=== PATIENT | female | born 1950 | race Caucasian/White ===

== ENCOUNTER 2016-09-24 07:00 | Inpatient (IN) | payer MEDICARE, OTHER ==
[~2016-09-24] VITALS: Ht 154.9 cm; Wt 106.8 kg
--- NOTE | ~2016-09-24 | DS ---
PATIENT'S NAME: RAYMOND WELSH [facility] AGE: 65 Y [address] ROOM: [place] [address] LOCATION: N ADMIT DATE: 09/30/2016 Discharge Summary DISCHARGE DATE: 10/02/2016 FAMILY PHYSICIAN: Paloma Chavez MD ATTENDING PHYSICIAN: Jet Sheppard PRIMARY DIAGNOSIS: Failed left total knee arthroplasty. SECONDARY DIAGNOSES: 1. Depression. 2. Obstructive sleep apnea with CPAP. 3. History of pneumonia. 4. Morbid obesity. PROCEDURE PERFORMED: Left total knee arthroplasty revision. HISTORY: The patient is a 65-year-old female, who presents with failed left total knee arthroplasty and associated severely compromised activities of daily living. The patient has decided to proceed with total knee arthroplasty after having been thoroughly counseled regarding the risks, benefits, limitations, and alternatives. Please refer to the outpatient clinic notes and admission history and physical for this patient. HOSPITAL COURSE: The patient underwent a left total knee arthroplasty revision on 09/30/2016 without complications. Spinal anesthesia plus periarticular local anesthesia was utilized. The patient received 24 hours of perioperative prophylactic antibiotics and remained hemodynamically stable, neurovascularly intact throughout the entire hospital course. The postoperative prophylactic deep venous thrombosis prophylaxis consisted of Xarelto, early mobilization, and pneumatic compression devices. Daily physical therapy for gait training, transfer training range of motion, and quadriceps isometric exercises were received. The patient progressed well in physical therapy. On the date of discharge, 10/02/2016, the incision at the knee was healing well and showed no signs of infection. DISPOSITION: Home. DISCHARGE ACTIVITY: The patient is to bear weight as tolerated with range of motion and quadriceps isometric exercises as instructed. The operative extremity is to be elevated at least 90% of the day. There is to be sterile 4x4 gauze dressings to the incision daily. Dr. Sheppard is to be notified immediately if there is any increased pain, fevers, chills, erythema, or drainage. DISCHARGE MEDICATIONS: PATIENT'S NAME: RAYMOND WELSH [facility] AGE: 65 Y [address] ROOM: [place] [address] LOCATION: G3N ADMIT DATE: 09/30/2016 Discharge Summary DISCHARGE DATE: 10/02/2016 FAMILY PHYSICIAN: Paloma Chavez MD ATTENDING PHYSICIAN: Jet Sheppard 1. Xarelto 10 mg 1 tablet p.o. daily for 12 days for postoperative DVT prophylaxis. 2. Hydromorphone 2 mg 1 to 2 tablets p.o. every 4 hours p.r.n. for pain. The patient was instructed to continue all her other pre-admission medications as instructed by her internal medicine doctor. FOLLOWUP: Followup appointment is to be with Dr. Sheppard's office on 10/07/2016 for her initial postop evaluation with suture removal and x-rays at that time. ANTOINE MAGANA PA-C FOR MD BHAVNA FAROOQW/tiol /[id number] d: 10/08/16 0129 t: 11/04/16 1310, DISCHARGE SUMMARY
--- NOTE | ~2016-09-24 | OR ---
PATIENT'S NAME: RAYMOND WELSH [facility] AGE: 65 Y [address] ROOM: [address] [address] LOCATION: [facility] ADMIT DATE: 09/30/2016 OR/Procedure Report DISCHARGE DATE: 10/02/2016 FAMILY PHYSICIAN: Paloma Chavez MD ATTENDING PHYSICIAN: Jet Sheppard SURGEON: Jet Sheppard MD HOSPITALITY AIDE: DATE OF PROCEDURE: 09/30/2016 ADDENDUM: It should be noted that the physician's tax accounting assistant played an active, integral role throughout this entire operation. By providing expert retraction, they greatly facilitated and expedited safe and effective exposure of the distal femur, proximal tibia and patella for preparation and implantation of the components. They were also actively involved in the patient's positioning, prepping and draping, as well as wound closure. MD GEENA FAROOQ/jaylon /[id number] d: 10/21/162141 t: 10/22/16 1210, OPERATIVE SUMMARY
--- NOTE | ~2016-09-24 | OR ---
PATIENT'S NAME: RAYMOND WELSH [facility] AGE: 65 Y [address] ROOM: [place] [address] LOCATION: [facility] ADMIT DATE: 09/30/2016 OR/Procedure Report DISCHARGE DATE: FAMILY PHYSICIAN: Paloma Chavez MD ATTENDING PHYSICIAN: LUKE PLEITEZ SURGEON: Luke Pleitez MD AGED OR DISABLED CARER: FIDE Casiano and Thien Jacobo CST/STEAM HAND. DATE OF PROCEDURE: 09/30/2016 PREOPERATIVE DIAGNOSES: 1. Left knee degenerative joint disease (severe, primary patella degenerative joint disease). 2. Non resurfaced patella status post left total knee arthroplasty (performed elsewhere). 3. Left knee patellofemoral malalignment. 4. Ligamentous laxity (medial collateral ligament, lateral collateral ligament, and posterior cruciate ligament). 5. Status post left knee arthroplasty (performed elsewhere). PROCEDURE PERFORMED: 1. Revision left total knee arthroplasty (tibial polyethylene exchange) and placement of patella component. 2. Lateral retinacular release. ANESTHESIA: Spinal anesthesia plus periarticular local anesthesia (ropivacaine with epinephrine and Toradol). DRAINS: None. SPECIMEN: Synovial fluid for cell count and culture. COMPLICATIONS: None. EXPLANTS: Kapadia and Nephew 15 mm deep dished tibial polyethylene insert. IMPLANTS: 1. Kapadia Nephew Journey II 18 mm deep-dished tibial polyethylene insert. 2. Size 29 mm round, Zamzam patella component. INDICATION FOR PROCEDURE: Ms. Welsh is a 65-year-old female who underwent a primary left knee arthroplasty with Dr. Darius Chisholm in July of 2015. She has experienced significant persistent and progressive discomforts since then. Her patella was not resurfaced at that time. She has full thickness erosion of the articular cartilage at her [place] patella. She also PATIENT'S NAME: RAYMOND WELSH [facility] AGE: 65 Y [address] ROOM: [place] [address] LOCATION: [facility] ADMIT DATE: 09/30/2016 OR/Procedure Report DISCHARGE DATE: FAMILY PHYSICIAN: Paloma Chavez MD ATTENDING PHYSICIAN: LUKE PLEITEZ has significant laxity of her medial and lateral collateral ligaments and posterior cruciate ligament. The tibial and femoral components are well fixed and appeared acceptably aligned. Risks, benefits, limitations, and alternatives to this procedure have been thoroughly reviewed, and informed consent has been granted. We have specifically reviewed risks and implications of infection, deep venous thrombosis, pulmonary embolism, mortality, wear, stiffness, persistent and/or recurrent instability, neurovascular complications, blood transfusion risks, and potential need for further revision. I have emphasized to the patient that I am optimistic that we can make her knee better than it is. However, I have informed her it would be unreasonable to anticipate any chance that her knee will feel completely normal or that she will be completely satisfied with her knee. She understands and accepts this. Informed consent granted. DESCRIPTION OF PROCEDURE: The patient was positioned supine after administration of anesthesia and prophylactic antibiotics. A well-padded pneumatic tourniquet was placed around her left proximal thigh, and her left lower extremity was prepped and draped with vigilant sterile technique. Examination under anesthesia demonstrated full extension. There was 5 mm of medial collateral ligament laxity and approximately 3 mm of lateral collateral ligament laxity. There was a grade 1+ posterior drawer. Flexion was limited to 100 degrees. There was a well-healed longitudinal midline scar. There was a mild effusion. There was no erythema. There was no abnormal warmth. The left lower extremity was prepped and draped with vigilant sterile technique. The left lower extremity was elevated and exsanguinated with an Esmarch wrap, and the pneumatic tourniquet was inflated to 300 mmHg. The knee was approached through the preexisting longitudinal midline scar. A medial parapatellar arthrotomy was performed. There was a moderate amount of translucent orange tinged fluid. This was sent for cell count and culture. Direct visualization of the articular surfaces during varus and valgus and posterior drawer stress confirmed our clinical impression that these ligaments were all quite lax. The posterior cruciate ligament was intact but loose. Direct visualization of the patella during tracking confirmed our clinical and radiographic impression that there was lateral tracking of the patella. There was full-thickness loss of articular cartilage throughout 80% of the patella. The patella was everted. A lateral retinacular release was performed in order to optimize patella tracking and facilitate patella exposure. The [place] patella measured 20 mm at its maximum thickness. The patella resection was performed with an oscillating saw. The tibial polyethylene insert was extracted. A trial 18 mm insert was placed. This was the thickest polyethylene made for this implant. The 3 mm of increased thickness dramatically improved stability (although there was still 2 mm of medial PATIENT'S NAME: RAYMOND WELSH [facility] AGE: 65 Y [address] ROOM: [address] [address] LOCATION: [facility] ADMIT DATE: 09/30/2016 OR/Procedure Report DISCHARGE DATE: FAMILY PHYSICIAN: Paloma Chavez MD ATTENDING PHYSICIAN: LUKE PLEITEZ collateral ligament laxity). Range of motion was 0-100 degrees of flexion. Patellar tracking was optimal. Trial components were removed. The final tibial polyethylene insert was placed. There was no flexion contracture. The posterior drawer had been eliminated. There was no residual lateral collateral ligament laxity. Patellar tracking was neutral. There was 2 mm of residual medial collateral ligament laxity. The patella component was cemented using DePuy 2 cement. The composite thickness of the reconstructed patella was 22 mm. The joint space and entire incision were thoroughly irrigated with bacteriostatic pulsatile saline lavage at this point as well as several times throughout the case. The arthrotomy was closed with multiple simple interrupted #1 Vicryl sutures. Subcutaneous tissues were re-irrigated. Periarticular soft tissues had been infiltrated with local anesthetic. Subcutaneous tissues were reapproximated with simple deep interrupted 0 Vicryl. The skin was closed with superficial buried interrupted 2-0 Vicryl, followed by surgical [place]. The dressings consisted of Xeroform gauze, followed by sterile gauze, ABD pads, and an Sigifredo wrap. There were no complications. MD GEENA FAROOQ/modl /[id number] d: 10/01/16822 t: 10/18/16 0749, OPERATIVE SUMMARY
[~2016-09-24 07:00] MED LIST changes: -CPAP INH; -DILAUDID 2MG(HYD2 MG PO; -LEVAQUIN750 MG PO; -TYLENOL EXTRA500 MG PO; -XARELTO10 MG PO
[2016-09-30] MEDS ORDERED: CPAP INH (11:06)
--- NOTE | 2016-09-30 18:47 | NUR ---
Significant Event: From PACU at 1700. Dressing C/D/I. Ez wrap ice at all times. No void. Numbness at upper thigh. Denies pain, Dilaudid 2mg at 1641 and Tylenol 1000mg at 1721. Follow up:
--- NOTE | 2016-10-01 03:19 | NUR ---
Significant Event: A/O X 3. IV FLUIDS INFUSING WELL. CPAP ON AT HS WITHOUT 02. SATS ABOVE 90%. INCENTIVE SPIROMETER USAGE 5200-4096. LEFT KNEE ACEWRAP DRY-INTACT. EZ-WRAP ON. HAD SPINAL DONE. EARLIER IN SHIFT HAD NUMBNESS, BUT IS NORMAL SENSATION. TOES FEET WARM, WIGGLES TOES. PULSES PRESENT. NO NAUSEA, TAKES FLUIDS. DANGLE AT BEDSIDE, UP WITH 2 ASSIST TO COMMODE, GAITBELT AND WALKER, VOIDS GOOD AMOUNTS. PASSING LITTLE FLATUS. ATB THERAPY CLINDAMYCIN IV. DILAUDID 2MG PO AT 2234 FOR PAIN RATE 1. ON ROUTINE SCHEDULED TYLENOL X STRENGTH 1000MG. WAS INCONTINENT OF URINE, BED LINEN CHANGED. Follow up:
[2016-10-01 05:40] LABS: HEMATOCRIT 38.1 % (33.0-46.0); HEMOGLOBIN 12.3 g/dL (10.0-15.0)
--- NOTE | 2016-10-01 11:45 | NUR ---
Introduced self/role to patient, her and son. She is planning home tomorrow to [place]. Denied any barriers to going home or at home. Added my name to her marker board, will continue to follow.
--- NOTE | 2016-10-01 16:39 | NUR ---
DOING WELL. UP TO BR WITH ONE ASSIST. BRIGID WRAP D/I TO KNEE. CSM ADEQUATE. DILAUID LAST AT 1640. ROUTINE TYLENOL. PLANS ON DISMISSAL TOMORROW. PLEASANT.
--- NOTE | 2016-10-02 03:25 | NUR ---
Pt A&Ox4. VSS on RA, wears CPAP at [facility]. Pain controlled with scheduled tylenol, PRN valium and PRN diluadid. Voiding and taking PO without issue. Plan is for possible DC to home today. Cooperative with cares.
[2016-10-02] MEDS ORDERED: TYLENOL EXTRA500 MG PO (11:55)
[2016-10-02] MEDS ORDERED: COLACE100 MG PO (11:56)
[2016-10-02] MEDS ORDERED: MIRALAX17 GM PO (11:57)
[2016-10-02] MEDS ORDERED: XARELTO10 MG PO (11:59)
[2016-10-02] MEDS ORDERED: DILAUDID 2MG(HYD2 MG PO (12:00)
--- NOTE | 2016-10-02 16:38 | NUR ---
Dismissal Note: Ambulates with SBA and walker. Dressing changed, [place] intact. Ez wrap ice at all times. Voids without difficulty. Dialudid 2mg for pain control. Cady education given with dismissal instructions, patient and family state understanding. IV d/cd. Dismissed to home with family per private vehicle.
== END 2016-10-02 16:20 | disposition disaster alternative care site (69) | DRG 464 ==
LOC: G3N 12:51 → UNDOADMIN 12:51 → G3N 09-30 10:23
PROVIDERS: Physician Assistant Surgical; ADMIT Orthopaedic Surgery
PROC: 0SPD0JC Removal of Synthetic Substitute from Left Knee Joint, Patellar Surface, Open Approach (ICD-10-PCS; principal; 2016-09-30)
PROC: 0SUD09C Supplement Left Knee Joint with Liner, Patellar Surface, Open Approach (ICD-10-PCS; principal; 2016-09-30)
DX: T84.013A Broken internal left knee prosthesis, initial encounter (principal); Z68.42 Body mass index [BMI] 45.0-49.9, adult; E66.01 Morbid (severe) obesity due to excess calories; G47.33 Obstructive sleep apnea (adult) (pediatric); M17.12 Unilateral primary osteoarthritis, left knee; M23.92 Unspecified internal derangement of left knee; F32.9 Major depressive disorder, single episode, unspecified; M24.20 Disorder of ligament, unspecified site
CPT/HCPCS: C1713; C1776; J1100; J1885; J2001; J2250; J2795; J7120

== ENCOUNTER → 2016-09-24 | Outpatient (CLI) | payer MEDICARE, OTHER ==
[~2016-09-24] MED LIST: ALEVE220 M1 PO; CELEBREX200 MG PO; COLACE100 MG PO; CPAP INH; CYMBALTA60 MG PO; DESYREL100 MG PO; DILAUDID 2MG(HYD2 MG PO; DILAUDID2 MG PO; ECOTRIN325 MG PO; LEVAQUIN750 MG PO; LYRICA 75MG CAP75 MG PO; MIRALAX17 GM PO; PEPCID40 MG PO; THERA-VITE W/ B1 TAB PO; TYLENOL EXTRA500 MG PO; TYLENOL325 MG PO; ULTRAM50 MG PO; VALIUM5 MG PO; XARELTO10 MG PO
== END | disposition disaster alternative care site (69) ==
LOC: GPOC 13:10 → EDSTATUS 09-30
DX: Z01.812 Encounter for preprocedural laboratory examination (principal)

== ENCOUNTER 2016-10-09 22:37 | Observation (INO) | payer MEDICARE, OTHER ==
[~2016-10-09] VITALS: Ht 154.9 cm; Wt 108.0 kg
--- NOTE | ~2016-10-09 | OR ---
PATIENT'S NAME: RAYMOND WELSH [facility] AGE: 65 Y [address] ROOM: [place] [address] [place] [facility] [place]MIT DATE: 10/10/2016 OR/Procedure Report DISCHARGE DATE: FAMILY PHYSICIAN: Paloma Chavez MD ATTENDING PHYSICIAN: Zen Pablo SURGEON: Zen Pablo MD CEMENT CRUSHER OPERATOR: DATE OF PROCEDURE: 10/10/2016 PREOPERATIVE DIAGNOSIS: Pharyngeal foreign body. POSTOPERATIVE DIAGNOSIS: No evidence of foreign body was identified with laryngoscopy. ANESTHESIA: General. SURGERY: Includes direct laryngoscopy - diagnostic. HISTORY: The patient is a 65-year-old female, who presented to the Emergency Room late last night after swallowing a bristle of her grill brush when eating a hamburger. This occurred at 8 p.m. I saw the patient at 11:30 p.m. Flexible laryngoscopy showed evidence of a foreign body in her right side of her vallecula and tongue base region. Because she ate three hours prior and because she was in no significant distress, I did elect to wait till the eight- hour recommendation for solid foods. The patient was admitted, and an IV dose of antibiotic was given. Preoperatively, she did still feel that the foreign body was present, and we proceeded with the procedure. Risks and benefits were discussed with the patient. OPERATIVE NOTE: The patient was brought to the Operating Room and placed in supine position with general anesthesia without incident. The eyes were protected during the operative course. Direct laryngoscopy did not reveal any evidence of foreign body. She had areas of blood staining, most likely where the foreign body had been present prior. The remainder of the larynx was clear including the postcricoid area, piriform sinuses, and vocal cord region. I did examine the patient under anesthesia for about 25 minutes without any evidence of foreign body identified. The patient was awakened from anesthesia without difficulty. PATIENT'S NAME: RAYMOND WELSH [facility] AGE: 65 Y [address] ROOM: [address] [address] [place] [facility] [place] DATE: 10/10/2016 OR/Procedure Report DISCHARGE DATE: FAMILY PHYSICIAN: Paloma Chavez MD ATTENDING PHYSICIAN: Zen Pablo MD DGO/modl /[id number] d: 10/10/1639 t: 10/14/1615, OPERATIVE SUMMARY
--- NOTE | ~2016-10-09 | ER ---
PATIENT'S NAME: RAYMOND WELSH [facility] AGE: 65 Y [address] ROOM: [place] [address] [place] [facility] [place] DATE: 10/10/2016 ER/Outpatient Report DISCHARGE DATE: FAMILY PHYSICIAN: Paloma Chavez MD ATTENDING PHYSICIAN: Zen Pablo Time of Arrival: 2237 hours. Time of Evaluation: 2239 hours. CHIEF COMPLAINT: Metal stuck in her throat. HISTORY OF PRESENT ILLNESS: The patient is a 65-year-old female, who presents to the emergency department today with a chief complaint of metal struck in her throat. She reports that about 2 hours prior to arrival, she was eating a hamburger. Her son had brushed the grill with a wire brush. She feels like she got a wire brush bristle stuck in her throat. She feels like it is on the right side. Does have a sore throat. It is sharp. Currently mild in severity. Denies any cough. No fevers or chills. No nausea or vomiting. No diarrhea or constipation. PAST MEDICAL HISTORY: Hypertension, anxiety, depression. PAST SURGICAL HISTORY: Left knee x2, right hand, right shoulder, tubal, cholecystectomy. SOCIAL HISTORY: The patient denies any tobacco, alcohol, or illicit drug use. ALLERGIES: AMOXICILLIN. MEDICATIONS: Please see list. PRIMARY CARE DOCTOR: Dr. Chavez. REVIEW OF SYSTEMS: All systems are reviewed by myself and are negative with the exception of those discussed in the HPI and past medical history. PHYSICAL EXAMINATION: PATIENT'S NAME: R[facility]D [facility] AGE: 65 Y [address] ROOM: [place] [address] [place] [facility] [place]MIT DATE: 10/10/2016 ER/Outpatient Report DISCHARGE DATE: FAMILY PHYSICIAN: Paloma Chavez MD ATTENDING PHYSICIAN: Zen Pablo VITAL SIGNS: Weight 107.5 kg, blood pressure 190/79, pulse 89, respiratory rate 20, temperature 98.4, oxygen saturation 98% on room air. GENERAL: The patient is a 65-year-old female, appears stated age, in no acute distress at this time. HEENT: Normocephalic, atraumatic. Pupils are equal, round, and reactive to light. NECK: Neck is mildly tender to palpation. There is no nuchal rigidity. CARDIOVASCULAR: Regular rate and rhythm. No murmurs, rubs, or gallops. LUNGS: Clear to auscultation bilaterally. No wheezes, rales, or rhonchi. ABDOMEN: Soft, nontender, and nondistended. No rebound, rigidity, or guarding. MUSCULOSKELETAL: The patient moves all 4 extremities. SKIN: Warm and dry. There are no rashes or lesions noted. LABORATORY DATA AND X-RAYS: CBC is normal. CMP is normal. LFTs are normal. CT scan of the soft tissue neck is obtained, is interpreted by [facility] shows no radiopaque foreign bodies. This is reviewed by myself as well. I do see evidence of a metallic foreign body noted proximally at the base of the epiglottis, likely in the vallecula. IMPRESSION: 1. Foreign body, wire brush bristle in the pharynx. 2. Initial visit. EMERGENCY DEPARTMENT COURSE: The patient was brought back to the examination room. Seen and evaluated by myself. IV is established. Laboratory analysis and imaging are obtained as described above. I have discussed the case with Gastroenterology, Dr. Friend, who is life skills consultant. He has recommended imaging. I have performed the CT imaging as described above. It does appear to be in the vallecula. I have contacted Dr. Pablo with Ear, Nose, and Throat. He has seen and evaluated the patient here in the emergency department, does visualize a foreign body. The patient has recently ate, there is concern about possible aspiration. The patient will be admitted for anticipation for surgical removal in the morning. Please see Dr. Pablo's dictation. DISPOSITION: The patient is admitted under the care of Dr. Pablo in stable condition. PATRICIA ARREOLA DO PATIENT'S NAME: [facility] AGE: 65 Y [address] ROOM: [place] [address] [place] [facility] [place]MIT DATE: 10/10/2016 ER/Outpatient Report DISCHARGE DATE: FAMILY PHYSICIAN: Paloma Chavez MD ATTENDING PHYSICIAN: Zen Pablo KJR/modl /[id number] d: 10/10/16 0247 t: 10/16/16 1604, OUTPATIENT REPORT
[~2016-10-09 22:37] MED LIST changes: +CPAP INH; +DILAUDID 2MG(HYD2 MG PO; +TYLENOL EXTRA500 MG PO; +XARELTO10 MG PO
[2016-10-09 23:13] LABS: BASOPHIL # 0.1 K/uL (0.0-0.2); BASOPHIL % 0.7 %; EOSINOPHIL # 0.3 K/uL (0.0-0.5); EOSINOPHIL % 3.3 %; HEMATOCRIT 39.3 % (33.0-46.0); HEMOGLOBIN 12.8 g/dL (10.0-15.0); IMMATURE GRANULOCYTE # 0.1 K/uL (0.0-0.3); IMMATURE GRANULOCYTE % 0.7 %; LYMPHOCYTE % 22.6 %; MCH 29.6 pg (27.0-34.0); MCHC 32.6 gm/dL (32.0-36.5); MCV 90.8 fl (83.0-98.0); MONOCYTE # 1.1 K/uL (0.0-1.0); MONOCYTE % 11.8 %; MPV 10.1 fl (9.4-12.4); NEUTROPHIL # (ANC) 5.5 K/uL (1.8-7.8); NEUTROPHIL % 60.9 %; NRBC % 0 /100WBC (0-0.00); PLATELET COUNT 289 K/uL (150-450); RBC 4.33 M/uL (3.50-5.50)
[2016-10-09 23:30] LABS: ALBUMIN 3.1 gm/dL (3.5-5.0); CREATININE 0.8 mg/dL (0.5-1.1); TOTAL BILIRUBIN 0.3 mg/dL (0.0-1.5); TOTAL PROTEIN 7.5 g/dL (6.0-8.4)
--- NOTE | 2016-10-10 01:43 | NUR ---
Admission: pt admitted from ER after her and her son ate steaks off the grill. proir to gilling her son had cleaned the grill with a wire brush. Pt began to experiance pain in her throat after they ate and came into ER. CT scan done and object seen in throat. Scope done by Dr. Pablo in ER and pt will have surgery lisa to remove object. Pt had L TKA last week. wears pat hose during the day from this. Hx. of neausea with anesthia, [place], frequent headaches, SOB with activity, CPAP at HS, Anxiety , deppression, arthritis, [place]ct[place] with dribbling, and walkes with walker since knee surgery. pt denies any difficulty breathing on admission. pt throat does no apear to be red or swollen. started on levequin, NPO permits on chart. NPO. LR at 75 ML/HR. up with assist. pt is showering prior to going to bed. VSS.
--- NOTE | 2016-10-10 10:48 | NUR ---
Met patient and family this morning at bedside. Patient had been down for the surgical procedure. Per patient they were not able to find the foreign body. She states that she is feeling well. She recently had a TKA on her left knee and states she had been doing well at home following his procedure. Her plan is to return home once she is medically cleared for discharge and denies any needs. Will continue to follow and offer supports as needed.
[2016-10-10] MEDS ORDERED: LEVAQUIN750 MG PO (15:27)
--- NOTE | 2016-10-10 17:12 | NUR ---
Significant Event: Pt was at OR at change of shift. She came back to the floor at 0820. Foreign body was not retrieved, it was no longer visualized by Dr. Pt reports that her throat is sore but does not have the sharp pain she had when the metal bristle was in her throat. Pt is recovering from left total knee revision she had last week. She is able to get herself in and out of bed and ambulate with the walker. Steri strips intact to left knee. Pt denied need for pain medication. Eating and drinking well. Follow up: Pt will go home this pm when her family gets here.
--- NOTE | 2016-10-11 00:47 | NUR ---
PT DISCHARGED AT 1900. DISCHARGE ORDERED REVIEWED WITH PATIENT SON AND AND SIGNED, ALL DENY QUESTIONS ABOUT INSTRUCTIONS GIVEN. PT TRANSFERS TO WHEELCHAIR INDPEDENLTY AND WHEELED DOWN TO MAIN HOSPITAL EXIT, VSS UPON DISCHARGE. PT TAKES ALL BELONGINGS WTIH HER AT THIS TIME. LEAVES WITH SON AND .
== END 2016-10-10 19:00 | disposition disaster alternative care site (69) ==
LOC: GACC 22:37 → GMSU 10-10 00:44
PROVIDERS: Emergency Medicine; ADMIT Otolaryngology
PROC: 0CJS8ZZ Inspection of Larynx, Via Natural or Artificial Opening Endoscopic (ICD-10-PCS; principal; 2016-10-10)
DX: T17.228A Food in pharynx causing other injury, initial encounter (principal); Z88.1 Allergy status to other antibiotic agents; Z79.899 Other long term (current) drug therapy; Z79.891 Long term (current) use of opiate analgesic
CPT/HCPCS: G0378; J0171; J1956; J2270; J7120